=== PATIENT | female | born 1995 | race Caucasian/White ===

== ENCOUNTER 2016-11-20 13:48 | Emergency (ER) | payer OTHER ==
[2016-11-20 14:03] VITALS: BP 137/77
[2016-11-20] MEDS ORDERED: Rabies VIRUS VACCINE, HDCV* 2.5 UNIT/ML 1 ML IM ONE (14:46)
[2016-11-20] MEDS ORDERED: Rabies Immune Globulin 10 ML* 150 UNIT/ML VIAL IM ONE (14:46)
[2016-11-20] MEDS ORDERED: Rabies Immune Globulin 2 ML* 150 UNITS/ML VIAL IM ONE ×2 (14:47→14:48)
--- NOTE | 2016-11-20 15:04 | UC ---
UC General HPI - HPI Summary HPI Summary: LAST NIGHT HAD BAT IN ROOM. NO KNOWN BITES. NO FEVER. NO RASH. NO MUSCLE ACHES. - History of Current Complaint Chief Complaint: UCGeneralIllness Stated Complaint: RABIES EXPOSURE Time Seen by Provider: 11/20/16 14:34 Hx Obtained From: Patient, Other: - ROOMATE Hx Last Menstrual Period: now Onset/Duration: Sudden Onset, Lasting Hours, Resolved Current Severity: None Associated Signs & Symptoms: Negative: Abdominal Pain, Cough, Chest Pain, Dizziness, Diarrhea, Dysuria, Edema, Fever, Nausea, Syncope, SOB, Trauma, Vomiting, Wheezing, Weakness - Allergy/Home Medications Allergies/Adverse Reactions: Allergies Allergy/AdvReac Type Severity Reaction Status Date / Time No Known Allergies Allergy Verified 11/20/16 14:02 PMH/Surg Hx/FS Hx/Imm Hx Previously Healthy: Yes Other History Of: Negative For: Anticoagulant Therapy - Surgical History Surgical History: None - Family History Known Family History: Positive: None Negative: Blood Disorder - Social History Occupation: Student Lives: With Family Alcohol Use: Occasionally Substance Use Type: None Smoking Status (MU): Never Smoked Tobacco Review of Systems Constitutional: Negative Skin: Negative Eyes: Negative ENT: Negative Respiratory: Negative Cardiovascular: Negative Gastrointestinal: Negative Genitourinary: Negative Motor: Negative Neurovascular: Negative Musculoskeletal: Negative Neurological: Negative Psychological: Negative All Other Systems Reviewed And Are Negative: Yes Physical Exam Triage Information Reviewed: Yes Appearance: Well-Appearing, No Pain Distress, Well-Nourished Vital Signs: Initial Vital Signs Temp 98.8 F 11/20/16 14:00 Pulse 111 11/20/16 14:00 Resp 20 11/20/16 14:00 BP 137/77 11/20/16 14:00 Pulse Ox 99 11/20/16 14:00 Vital Signs Reviewed: Yes Eye Exam: Normal ENT Exam: Normal ENT: Positive: Normal ENT inspection, Hearing grossly normal, TMs normal Dental Exam: Normal Neck exam: Normal Respiratory Exam: Normal Respiratory: Positive: Chest non-tender, Lungs clear, Normal breath sounds, No respiratory distress Cardiovascular Exam: Normal Cardiovascular: Positive: RRR, No Murmur, Pulses Normal, Brisk Capillary Refill Abdominal Exam: Normal Musculoskeletal Exam: Normal Musculoskeletal: Positive: Strength Intact Neurological Exam: Normal Psychological Exam: Normal Skin Exam: Normal Course/Dx - Differential Dx - Multi-Symptom Differential Diagnoses: Metabolic Abnormality Provider Diagnoses: POST EXPOSURE RABIES PROPHYLAXIS Discharge - Discharge Plan Condition: Stable Disposition: HOME Patient Education Materials: Rabies Vaccine (ED) Referrals: [facility]IAN REFERRAL [Outside] No Primary Care Phys,NOPCP [Primary Care Provider] -
== END 2016-11-20 15:31 | disposition home or self-care (01) ==
LOC: UCEAST 13:48
DX: Z20.3 Contact with and (suspected) exposure to rabies (principal)
CPT/HCPCS: 90375; 90471; 96372; 99211; G0463